=== PATIENT | female | born 1995 | race Caucasian/White ===

== ENCOUNTER 2018-12-26 16:49 | Emergency (ER) | payer OTHER, BC ==
[~2018-12-26] VITALS: Ht 170.2 cm; Wt 90.9 kg
[~2018-12-26 16:49] MED LIST: ALDOMET250 MG PO; IBUPROFEN600 MG PO; METHYLDOPA500 MG PO; NIFEDIPINE ER60 MG PO; PERCOCET 5-3251 TAB PO; PRENAVITE1 TAB PO; SYNTHROID100 MCG PO
[2018-12-26 16:54] VITALS: Ht 170.2 cm; Wt 90.9 kg
[2018-12-26] MEDS ORDERED: ZIAC 10-6.25 MG1 TAB PO (16:56)
[2018-12-26] MEDS ORDERED: LISINOPRIL10 MG PO (16:56)
[2018-12-26 17:25] LABS: BASOPHILS 0.4 % (0-2); EOSINOPHILS 3.9 % (0-7); HEMATOCRIT 38.8 % (36.0-48.0); HEMOGLOBIN 13.1 g/dL (12-16); IMMATURE GRANULOCYTES 0.2 % (0-5); LYMPHOCYTES 32.6 % (15-50); MCH 29.2 pg (26.0-34.0); MCHC 33.8 g/dL (31.0-37.0); MCV 86.6 fL (80.0-100.0); MEAN PLATELET VOLUME 8.9 fL (7.4-10.4); NEUTROPHILS 53.9 % (40-80); RBC 4.48 10x6/uL (4.00-5.40); RDW 12.6 % (11.5-14.5); WBC 5.6 10x3/uL (4.8-10.8)
[2018-12-26 17:28] LABS: PLATELET COUNT 173 10x3/uL (130-400)
[2018-12-26 17:39] LABS: ALBUMIN 3.8 g/dL (3.4-5.0); ALKALINE PHOSPHATASE 69 U/L (46-116); ALT (SGPT) 23 U/L (10-68); BILIRUBIN - TOTAL 0.23 mg/dL (0.2-1.3); CALC OSMOLALITY 275 mosm/kg (275-300); CALCIUM 8.7 mg/dL (8.5-10.1); CARBON DIOXIDE 28.1 mmol/L (21.0-32.0); CHLORIDE - SERUM 105 mmol/L (98-107); CREATININE - SERUM 0.7 mg/dL (0.6-1.3); GLUCOSE 93 mg/dL (74-106); POTASSIUM - SERUM 4.1 mmol/L (3.5-5.1); PROTEIN - SERUM 7.8 g/dL (6.4-8.2); SODIUM 139 mmol/L (136-145); UREA NITROGEN 8 mg/dL (7-18); eGFR NON AFRICAN AMERICAN > 90 mL/min (90-120)
[2018-12-26 17:47] LABS: HCG SERUM NEGATIVE (NEGATIVE)
[2018-12-26] MEDS ORDERED: TORADOL10 MG PO (22:16)
[2018-12-26] MEDS ORDERED: ROBAXIN500 MG PO (22:16)
[2018-12-26 23:12] VITALS: BP 123/78
== END 2018-12-26 23:11 | disposition home or self-care (01) ==
LOC: D.ER 16:49
PROVIDERS: Family Medicine
DX: N93.8 Other specified abnormal uterine and vaginal bleeding (principal); F17.200 Nicotine dependence, unspecified, uncomplicated

== ENCOUNTER 2019-05-22 13:52 | Emergency (ER) | payer MEDICAID ==
[~2019-05-22] VITALS: Ht 170.2 cm; Wt 95.5 kg
[~2019-05-22 13:52] MED LIST changes: +LISINOPRIL10 MG PO; +ROBAXIN500 MG PO; +TORADOL10 MG PO; +ZIAC 10-6.25 MG1 TAB PO
[2019-05-22 13:54] VITALS: Ht 170.2 cm; Wt 95.5 kg
[2019-05-22] MEDS ORDERED: LEXAPRO5 MG PO (14:00)
[2019-05-22] MEDS ORDERED: HYDROCODON-ACE1 EAC7 PO (14:00)
[2019-05-22] MEDS ORDERED: NYAMYC60 GM TP (14:42)
[2019-05-22 15:03] VITALS: BP 143/96
== END 2019-05-22 15:00 | disposition home or self-care (01) ==
LOC: D.ER 13:52
DX: B35.6 Tinea cruris (principal); F17.210 Nicotine dependence, cigarettes, uncomplicated; I10 Essential (primary) hypertension

== ENCOUNTER 2020-04-12 13:37 | Emergency (ER) | payer MEDICAID ==
[~2020-04-12] VITALS: Ht 170.2 cm; Wt 100.0 kg
[~2020-04-12 13:37] MED LIST changes: +HYDROCODON-ACE1 EAC7 PO; +LEXAPRO5 MG PO; +NYAMYC60 GM TP
[2020-04-12 13:40] VITALS: Ht 170.2 cm; Wt 100.0 kg
[2020-04-12 16:15] LABS: BILIRUBIN NEGATIVE (NEGATIVE); GLUCOSE NEGATIVE (NEGATIVE); KETONE NEGATIVE (NEGATIVE); NITRITE NEGATIVE (NEGATIVE); SPECIFIC GRAVITY 1.015 (1.005-1.020); UROBILINOGEN NORMAL (NORMAL)
[2020-04-12 16:17] LABS: BACTERIA FEW /hpf (NEGATIVE); EPITHELIAL CELLS 0-5 /hpf (0-5); RED CELLS - URINE 0-5 /hpf (0-5); WHITE CELLS - URINE 0-5 /hpf (NEGATIVE)
[2020-04-12 16:18] LABS: AMORPHOUS SEDIMENT >1+ /lpf (NONE SEEN)
[2020-04-12] MEDS ORDERED: CYCLOBENZAPRINE10 MG PO (16:41)
[2020-04-12] MEDS ORDERED: NAPROSYN500 MG PO (16:41)
[2020-04-12 17:02] VITALS: BP 145/86
== END 2020-04-12 17:03 | disposition home or self-care (01) ==
LOC: D.ER 13:37
PROVIDERS: Family Medicine
DX: L98.8 Other specified disorders of the skin and subcutaneous tissue (principal); N32.2 Vesical fistula, not elsewhere classified; M25.551 Pain in right hip; S29.012A Strain of muscle and tendon of back wall of thorax, initial encounter; V89.0XXA Person injured in unspecified motor-vehicle accident, nontraffic, initial encounter; Y93.9 Activity, unspecified; Y92.9 Unspecified place or not applicable; E07.9 Disorder of thyroid, unspecified; I10 Essential (primary) hypertension; J45.909 Unspecified asthma, uncomplicated; Z72.0 Tobacco use; M79.604 Pain in right leg

== ENCOUNTER 2020-06-16 12:09 | Emergency (ER) | payer SELFPAY ==
[~2020-06-16] VITALS: Ht 170.2 cm; Wt 100.0 kg
[~2020-06-16 12:09] MED LIST changes: +CYCLOBENZAPRINE10 MG PO; +NAPROSYN500 MG PO
[2020-06-16 12:18] VITALS: Ht 170.2 cm; Wt 100.0 kg
[2020-06-16 13:21] LABS: BACTERIA MANY /hpf (NEGATIVE); BILIRUBIN NEGATIVE (NEGATIVE); GLUCOSE NEGATIVE (NEGATIVE); KETONE NEGATIVE (NEGATIVE); NITRITE POSITIVE (NEGATIVE); RED CELLS - URINE 0-5 /hpf (0-5); UROBILINOGEN NORMAL (NORMAL); WHITE CELLS - URINE 0-5 /hpf (NEGATIVE)
[2020-06-16 15:00] LABS: BASOPHILS 0.3 % (0-2); HEMOGLOBIN 14.3 g/dL (12-16); IMMATURE GRANULOCYTES 0.3 % (0-5); LYMPHOCYTES 24.6 % (15-50); MCH 29.7 pg (26.0-34.0); MCV 87.1 fL (80.0-100.0); MEAN PLATELET VOLUME 8.7 fL (7.4-10.4); MONOCYTES 9.1 % (2-11); NEUTROPHILS 62.7 % (40-80); PLATELET COUNT 163 10x3/uL (130-400); RBC 4.82 10x6/uL (4.00-5.40); RDW 12.3 % (11.5-14.5); WBC 6.1 10x3/uL (4.8-10.8)
[2020-06-16 15:19] LABS: CALC OSMOLALITY 275 mosm/kg (275-300); CARBON DIOXIDE 30.2 mmol/L (21.0-32.0); CHLORIDE - SERUM 103 mmol/L (98-107); CREATININE - SERUM 0.8 mg/dL (0.6-1.3); GLUCOSE 94 mg/dL (74-106); POTASSIUM - SERUM 3.4 mmol/L (3.5-5.1); SODIUM 138 mmol/L (136-145); UREA NITROGEN 12 mg/dL (7-18); eGFR NON AFRICAN AMERICAN > 90 mL/min (90-120)
[2020-06-16 15:21] LABS: HCG URINE NEGATIVE (NEGATIVE)
[2020-06-16 15:25] LABS: ALBUMIN 3.9 g/dL (3.4-5.0); ALKALINE PHOSPHATASE 97 U/L (30-120); ALT (SGPT) 24 U/L (10-68); BILIRUBIN - TOTAL 0.68 mg/dL (0.2-1.3); PROTEIN - SERUM 7.7 g/dL (6.4-8.2)
[2020-06-16] MEDS ORDERED: CIPRO500 MG PO (16:00)
[2020-06-16] MEDS ORDERED: TORADOL10 MG PO (16:04)
[2020-06-16 16:59] VITALS: BP 158/98
== END 2020-06-16 16:59 | disposition home or self-care (01) ==
LOC: D.ER 12:09
PROVIDERS: Family Medicine
DX: N39.0 Urinary tract infection, site not specified (principal); M54.5 Low back pain; I10 Essential (primary) hypertension; Z72.0 Tobacco use